=== PATIENT | female | born 1960 | race Caucasian/White ===

== ENCOUNTER 2024-04-23 12:04 | Inpatient (IN) | payer MEDICAID, MEDICARE ==
[~2024-04-23] VITALS: Ht 162.6 cm; Wt 124.3 kg
[2024-04-23 12:05] VITALS: BP_SYST 120; PULSE 110; RESP 19; TEMP 97.5; O2SAT 99
[2024-04-23 15:26] LABS: ANION GAP 10 (5-15); CALCIUM 9.3 mg/dL (8.4-11.0); CARBON DIOXIDE 25 mmol/L (23-29); CHLORIDE 111 mmol/L (98-107); CREATININE 1.62 mg/dL (0.55-1.30); GFR AFRICAN AMERICAN 41 mL/min (>90); GLUCOSE 116 mg/dL (74-106); SODIUM SERUM 146 mmol/L (136-145); UREA NITROGEN, BLOOD 32 mg/dL (8-21)
[2024-04-23] MEDS: VANCOMYCIN HCL 1,000 MG in NS 250 ML IV ONE (15:30)
[2024-04-23 15:44] LABS: ALCOHOL, BLOOD < 3 mg/dL (<10); GFR NON AFRICAN-AMERICAN 34 mL/min (>90)
[2024-04-23 15:47] LABS: POTASSIUM 2.7 mmol/L (3.5-5.1)
[2024-04-23 15:55] LABS: HEMOGLOBIN 12.2 g/dL (12.0-16.0); MEAN CORPUSCULAR HEMOGLOBIN 30 pg (27-31); MEAN CORPUSCULAR HGB CONC 34 % (32-36); MEAN CORPUSCULAR VOLUME 88 fL (79.0-98.0); RED BLOOD CELL COUNT(AUTO) 4.08 MIL/uL (4.2-6.2); RED CELL DISTRIBUTION WIDTH 16.5 % (9.0-15.0); WHITE BLOOD COUNT (AUTO) 13.7 K/uL (4.8-10.8)
[2024-04-23] MEDS ORDERED: KCL 40 mEq in 100 mL (PREMIX) 100 ML IV ONE (16:00)
[2024-04-23] MEDS: NACL 0.9% 2,000 ML IV ONE (16:30)
[2024-04-23 16:42] LABS: ANISOCYTOSIS 1+; BAND % (MANUAL) 12 % (0-6); BASOPHILS % (MANUAL) 0 % (0-2); EOSINOPHILS % (MANUAL) 0 % (0-7); LYMPHOCYTES % (MANUAL) 16 % (20-46); MONOCYTES % (MANUAL) 4 % (0-11); OVALOCYTES MODERATE; PLATELET ESTIMATE DECREASED (ADEQUATE); TEAR DROP CELLS MODERATE
[2024-04-23 16:44] LABS: PLATELET COUNT (AUTO) 68 K/uL (130-430)
[2024-04-23] MEDS: HEPARIN SODIUM,PORCINE 5,000 UNITS/ML VIAL IVP ONE (17:00)
[2024-04-23] MEDS: NACL 0.9% 1,000 ML IV ONE ×2 (17:49→20:21)
[2024-04-23 18:04] LABS: BILIRUBIN,URINE 2+ (NEGATIVE); BLOOD, URINE 3+ (NEGATIVE); CLARITY/URINE CLOUDY (CLEAR); GLUCOSE,URINE NEGATIVE (NEGATIVE); KETONES,URINE TRACE (NEGATIVE); LEUKOCYTE ESTERASE ,URINE 2+ (NEGATIVE); NITRITE, URINE NEGATIVE (NEGATIVE); PROTEIN URINE 2+ (NEGATIVE)
[2024-04-23] MEDS: KCL 20 mEq in 100 mL (PREMIX) 100 ML IV SCH (18:08)
[2024-04-23 18:11] LABS: COLOR,URINE ORANGE (YELLOW)
[2024-04-23 18:42] LABS: WBC,URINE >100 /HPF (0-3)
[2024-04-23 18:43] LABS: BACTERIA,URINE MANY /HPF (None Seen); MUCUS,URINE None Seen /LPF (None Seen)
[2024-04-23] MEDS ORDERED: LEVO112T5 PO (18:54)
[2024-04-23] MEDS ORDERED: IPRA3AMP9 HHN (18:54)
[2024-04-23] MEDS ORDERED: METO25TA6 PO (18:54)
[2024-04-23] MEDS ORDERED: MEGE400O6 PO (18:54)
[2024-04-23] MEDS ORDERED: POTA-195 PO (18:54)
[2024-04-23] MEDS ORDERED: MIRT7.5T11 PO (18:54)
[2024-04-23] MEDS ORDERED: ATOR40TA68 PO (18:54)
[2024-04-23] MEDS ORDERED: TOLT4CAP28 PO (18:54)
[2024-04-23] MEDS ORDERED: DOCU-156 PO (18:54)
[2024-04-23 19:30] LABS: BARBITURATE, URINE NEGATIVE (NEG <=200); BENZODIAZEPINE, URINE NEGATIVE (NEG <=150); CANNABINOID, URINE NEGATIVE (NEG <=50); COCAINE, URINE NEGATIVE (NEG <=150); METHAMPHETAMINES SCREEN,URINE NEGATIVE (NEG <=500); OPIATE, URINE NEGATIVE (NEG <=100); PHENCYCLIDINE SCREEN,URINE NEGATIVE (NEG <=25); UR TRICYCLIC ANTIDEPRESSANTS NEGATIVE (NEG <=300); URINE AMPHETAMINE NEGATIVE (NEG <=500); URINE METHADONE NEGATIVE (NEG <=200); URINE OXYCODONE SCREEN NEGATIVE (NEG <=100)
[2024-04-23 19:51] LABS: INR 2.2 (0.8-1.2)
[2024-04-23] MEDS ORDERED: PIPERACILLIN/TAZOBACTAM 3.375 GM/VIAL (ZOSYN) IV ONE (20:21)
[2024-04-23] MEDS: PIPERACILLIN/TAZO 3.375 GM in NS 50 ML IV ONE (20:21)
[2024-04-23 22:23] VITALS: BP_SYST 114; PULSE 104; RESP 20; TEMP 97.3; O2SAT 99
[2024-04-24 00:38] VITALS: BP_SYST 128; PULSE 90; RESP 19; TEMP 97.5; O2SAT 95
[2024-04-24 08:00] VITALS: BP_SYST 100; PULSE 99; RESP 14; TEMP 97.2; O2SAT 100
[2024-04-24 10:39] LABS: CALCIUM 9.1 mg/dL (8.4-11.0); CREATININE 1.64 mg/dL (0.55-1.30)
[2024-04-24 11:42] LABS: BASOPHILS % (AUTO) 0.1 % (0.0-2.0); EOSINOPHILS % (AUTO) 0.1 % (0.0-4.0); HEMATOCRIT 36.3 % (36-48); HEMOGLOBIN 11.9 g/dL (12.0-16.0); LYMPHOCYTES # (AUTO) 3.2 K/uL (1.0-5.5); LYMPHOCYTES % (AUTO) 20.4 % (20.5-51.5); MEAN CORPUSCULAR HEMOGLOBIN 29 pg (27-31); MEAN CORPUSCULAR HGB CONC 33 % (32-36); MEAN CORPUSCULAR VOLUME 89 fL (79.0-98.0); MONOCYTES # (AUTO) 1.1 K/uL (0.0-1.0); MONOCYTES % (AUTO) 6.7 % (1.7-9.3); NEUTROPHILS # (AUTO) 11.6 K/uL (1.8-7.7); NEUTROPHILS % (AUTO) 72.7 % (40.0-70.0); RED BLOOD CELL COUNT(AUTO) 4.08 MIL/uL (4.2-6.2); RED CELL DISTRIBUTION WIDTH 16.3 % (9.0-15.0); WHITE BLOOD COUNT (AUTO) 15.9 K/uL (4.8-10.8)
[2024-04-24 12:31] LABS: PLATELET COUNT (AUTO) 59 K/uL (130-430)
[2024-04-24 12:48] VITALS: BP_SYST 118; PULSE 102; RESP 18; TEMP 98.3; O2SAT 98
[2024-04-24 17:15] VITALS: BP_SYST 122; PULSE 96; RESP 18; TEMP 98.2; O2SAT 100
[2024-04-24 20:00] VITALS: BP_SYST 120; PULSE 111; RESP 18; TEMP 96.3; O2SAT 99
[2024-04-24] MEDS: CLOTRIMAZOLE 1% TOPICAL CREAM 15 GM TP SCH (20:53)
[2024-04-24] MEDS ORDERED: ANTIFUNGAL CLEAR OINTMENT TP SCH (21:00)
[2024-04-24] MEDS ORDERED: IPRATROPIUM/ALBUTEROL SULFATE 3 ML AMPUL.NEB (DUONEB) INH PRN (22:30)
[2024-04-24] MEDS: NACL 0.9% 1,000 ML IV SCH (23:12)
[2024-04-24 23:45] VITALS: BP_SYST 122; PULSE 96
[2024-04-25] VITALS (21 sets, daily range): BP systolic 62–144; PULSE 98–124; RESP 16–33; TEMP 95.6–98.4; O2SAT 65–100
[2024-04-25] MEDS: PIPERACILLIN/TAZO 3.375 GM in D5W 50 ML IV SCH (01:38)
[2024-04-25] MEDS: PIPERACILLIN/TAZOBACTAM 3.375 GM/VIAL (ZOSYN) IV ONE (01:43)
[2024-04-25] MEDS ORDERED: CEFEPIME 2 GM in D5W 100 ML IV SCH (09:00)
[2024-04-25] MEDS: CEFEPIME 1 GM in D5W 100 ML IV SCH (09:53)
[2024-04-25] MEDS: LEVOTHYROXINE SODIUM 0.112 MG TABLET PO SCH (10:01)
[2024-04-25] MEDS: DOCUSATE SODIUM 100 MG CAPSULE PO SCH (10:01)
[2024-04-25] MEDS: ATORVASTATIN 20 MG TABLET PO SCH (10:02)
[2024-04-25] MEDS: METOPROLOL TARTRATE 25 MG TABLET PO SCH (10:06)
[2024-04-25] MEDS: NACL 0.9% 1,000 ML IV ONE ×2 (12:45→15:05)
[2024-04-25] MEDS ORDERED: *HEPARIN PER PHARMACY XX PRN (13:00)
[2024-04-25] MEDS ORDERED: NACL 0.9% 1,000 ML IV SCH (13:00)
[2024-04-25] MEDS ORDERED: HEPARIN 25,000 UNITS/D5W 250ML 250 ML IV PRN (13:00)
[2024-04-25] MEDS ORDERED: ETOMIDATE 20 MG/ 10 ML VIAL (AMIDATE) ONE (14:05)
[2024-04-25] MEDS ORDERED: ROCURONIUM BROMIDE 10 MG/ML (ZEMURON) ONE (14:05)
[2024-04-25] MEDS: NOREPINEPHRINE 4 MG/4 ML VIAL IV ONE (14:21)
[2024-04-25] MEDS: NOREPINEPHRINE BITARTRATE 8 MG in D5W 242 ML IV PRN (14:47)
[2024-04-25] MEDS: HEPARIN 25,000 UNITS/D5W 250ML 250 ML IV ONE (14:55)
[2024-04-25 15:28] LABS: ABG O2 SAT% ESTIMATE 99.7 % (94.0-98.0); BLOOD GAS BASE EXCESS -13.1 mmol/L (-2.0-3.0); BLOOD GAS HCO3 12.2 mmol/L (21.0-28.0); BLOOD GAS PH 7.273 (7.350-7.450)
[2024-04-25 15:29] LABS: BLOOD GAS PO2 371.2 mmHg (83.0-108.0)
[2024-04-25 15:31] LABS: HEMATOCRIT 35.3 % (36-48); HEMOGLOBIN 11.1 g/dL (12.0-16.0); MEAN CORPUSCULAR HEMOGLOBIN 29 pg (27-31); MEAN CORPUSCULAR HGB CONC 32 % (32-36); MEAN CORPUSCULAR VOLUME 93 fL (79.0-98.0); RED BLOOD CELL COUNT(AUTO) 3.81 MIL/uL (4.2-6.2); RED CELL DISTRIBUTION WIDTH 17.4 % (9.0-15.0); WHITE BLOOD COUNT (AUTO) 19.2 K/uL (4.8-10.8)
[2024-04-25 15:47] LABS: BILIRUBIN,DIRECT 0.9 mg/dL (0.0-0.3); CALCIUM 8.1 mg/dL (8.4-11.0); CREATININE 2.38 mg/dL (0.55-1.30); TOTAL BILIRUBIN 1.3 mg/dL (0.0-1.0); TOTAL PROTEIN, SERUM 4.9 g/dL (6.4-8.3)
[2024-04-25 15:50] LABS: POTASSIUM 2.9 mmol/L (3.5-5.1)
[2024-04-25 15:51] LABS: PLATELET COUNT (AUTO) 45 K/uL (130-430)
[2024-04-25 15:53] LABS: BAND % (MANUAL) 3 % (0-6); BASOPHILS % (MANUAL) 0 % (0-2); EOSINOPHILS % (MANUAL) 0 % (0-7); LYMPHOCYTES % (MANUAL) 10 % (20-46); MONOCYTES % (MANUAL) 4 % (0-11)
[2024-04-25 15:54] LABS: ANISOCYTOSIS 1+; OVALOCYTES FEW; PLATELET ESTIMATE DECREASED (ADEQUATE)
[2024-04-25] MEDS ORDERED: LR 1,000 ML IV SCH (16:00)
[2024-04-25] MEDS ORDERED: HEPARIN 25,000 UNITS in 250 ML PREMIX IV PRN (16:30)
[2024-04-25] MEDS ORDERED: HEPARIN SODIUM,PORCINE 2000 UNITS/0.4 ML BOLUS IVP PRN (16:30)
[2024-04-25] MEDS ORDERED: HEPARIN SODIUM,PORCINE 3000 UNITS/0.6 ML BOLUS IVP PRN (16:30)
[2024-04-25] MEDS: KCL 20 mEq in 100 mL (PREMIX) 100 ML IV ONE (16:36)
[2024-04-25] MEDS: SODIUM BICARBONATE 8.4% JECT 50 MEQ/50 ML SYRINGE IVP ONE (16:37)
[2024-04-25] MEDS: PROPOFOL DRIP 100 ML IV PRN (16:58)
[2024-04-25] MEDS: HYDROCORTISONE SOD SUCC 100 MG/2 ML VIAL IVP ONE (17:31)
[2024-04-25] MEDS: NACL 0.9% 1,000 ML IV SCH (17:32)
[2024-04-25] MEDS: MEROPENEM 500 MG in NS 50 ML IV SCH (18:12)
[2024-04-25] MEDS: KCL 40 mEq in 100 mL (PREMIX) 100 ML IV ONE (18:25)
[2024-04-25] MEDS: VANCOMYCIN HCL 1,000 MG in NS 250 ML IV SCH (19:31)
[2024-04-25] MEDS: HYDROCORTISONE SOD SUCC 100 MG/2 ML VIAL IVP SCH (21:30)
[2024-04-25] MEDS ORDERED: COMMUNICATION ORDER XX ONE (22:30)
[2024-04-25] MEDS: VASOPRESSIN 20 UNITS/ML VIAL IV ONE (22:49)
[2024-04-25] MEDS: VASOPRESSIN 40 UNITS in NS 38 ML IV PRN (23:06)
[2024-04-25] MEDS: PHENYLEPHRINE HCL 10 MG/ML VIAL (NEOSYNEPHRINE) ONE (23:22)
[2024-04-26] VITALS (10 sets, daily range): BP systolic 71–161; PULSE 97–120; RESP 16–38; TEMP 97.8–99.5; O2SAT 38–80
[2024-04-26] MEDS ORDERED: COMMUNICATION ORDER XX ONE
[2024-04-26] MEDS: NS 500 ML IV ONE (00:45)
[2024-04-26] MEDS ORDERED: NOREPINEPHRINE BITARTRATE 16 MG in D5W 242 ML IV PRN (01:45)
[2024-04-26 01:46] LABS: VENOUS BASE EXCESS -30.3 mmol/l (-2.0-3.0); VENOUS PH BG 6.773 (7.320-7.430); VENOUS PO2 63.7 mmHg (23.0-48.0)
[2024-04-26 01:48] LABS: BASOPHILS % (AUTO) 0.2 % (0.0-2.0); HEMOGLOBIN 9.1 g/dL (12.0-16.0)
[2024-04-26 01:55] LABS: EOSINOPHILS # (AUTO) 0.3 K/uL (0.0-0.4); EOSINOPHILS % (AUTO) 1.7 % (0.0-4.0); HEMATOCRIT 31.9 % (36-48); LYMPHOCYTES # (AUTO) 2.5 K/uL (1.0-5.5); LYMPHOCYTES % (AUTO) 14.4 % (20.5-51.5); MEAN CORPUSCULAR HEMOGLOBIN 30 pg (27-31); MEAN CORPUSCULAR HGB CONC 29 % (32-36); MEAN CORPUSCULAR VOLUME 104 fL (79.0-98.0); MONOCYTES # (AUTO) 1.2 K/uL (0.0-1.0); NEUTROPHILS # (AUTO) 13.1 K/uL (1.8-7.7); NEUTROPHILS % (AUTO) 76.7 % (40.0-70.0); RED BLOOD CELL COUNT(AUTO) 3.07 MIL/uL (4.2-6.2); RED CELL DISTRIBUTION WIDTH 18.8 % (9.0-15.0)
[2024-04-26 02:12] LABS: PLATELET COUNT (AUTO) 28 K/uL (130-430)
[2024-04-26 02:17] LABS: ALANINE AMINOTRANSFERASE 1500 U/L (12-78); ALBUMIN 1.3 g/dL (3.4-4.8); ANION GAP 28 (5-15); CALCIUM 7.5 mg/dL (8.4-11.0); CHLORIDE 114 mmol/L (98-107); CREATININE 2.87 mg/dL (0.55-1.30); GFR AFRICAN AMERICAN 21 mL/min (>90); GLUCOSE 113 mg/dL (74-106); SODIUM SERUM 147 mmol/L (136-145); TOTAL PROTEIN, SERUM 3.8 g/dL (6.4-8.3); UREA NITROGEN, BLOOD 43 mg/dL (8-21)
[2024-04-26 02:19] LABS: GFR NON AFRICAN-AMERICAN 18 mL/min (>90)
[2024-04-26 02:22] LABS: CARBON DIOXIDE 5 mmol/L (23-29); POTASSIUM 6.1 mmol/L (3.5-5.1)
[2024-04-26] MEDS: NOREPINEPHRINE 4 MG/4 ML VIAL IV ONE (02:27)
[2024-04-26] MEDS: VASOPRESSIN 20 UNITS/ML VIAL IV ONE (02:29)
[2024-04-26] MEDS: SODIUM BICARBONATE 8.4% VIAL 50 MEQ/50 ML VIAL ONE (03:06)
[2024-04-26] MEDS: SODIUM BICARBONATE 8.4% VIAL 150 MEQ in D5W 1,000 ML IV SCH (03:07)
[2024-04-26] MEDS: EPINEPHrine HCL 1 MG/ML VIAL ONE (03:23)
[2024-04-26] MEDS: PHENYLEPHRINE HCL 100 MG in NS 240 ML IV PRN (03:27)
[2024-04-26] MEDS: NOREPINEPHRINE BITARTRATE 32 MG in D5W 242 ML IV PRN (03:37)
[2024-04-26] MEDS: EPINEPHrine HCL 10 MG in NS 240 ML IV PRN (03:49)
[2024-04-26] MEDS: PHENYLEPHRINE HCL 10 MG/ML VIAL (NEOSYNEPHRINE) ONE ×3 (06:15→06:16)
[2024-04-26] MEDS: LEVOTHYROXINE SODIUM 0.112 MG TABLET PO SCH (06:16)
[2024-04-26] MEDS ORDERED: PANTOPRAZOLE SODIUM 40 MG/VIAL (PROTONIX) IVP SCH (09:00)
[2024-04-26] MEDS ORDERED: SODIUM BICARBONATE 8.4% JECT 50 MEQ/50 ML SYRINGE ONE (10:25)
[2024-04-26] MEDS ORDERED: CALCIUM CHLORIDE 1 GM/10 ML DISP.SYRIN (14 mEq Ca++/SYR) ONE (10:25)
[2024-04-26] MEDS ORDERED: EPINEPHrine JECT 0.1 MG/ML SYR ONE (10:25)
== END 2024-04-26 07:14 | DRG 720 ==
LOC: SED 12:04 → STU 17:19 → SIC 04-25 12:53
PROVIDERS: ADMIT Family Medicine; ATTEND Family Medicine
PROC: 02HV33Z Insertion of Infusion Device into Superior Vena Cava, Percutaneous Approach (ICD-10-PCS; 2024-04-23)
PROC: 0BH17EZ Insertion of Endotracheal Airway into Trachea, Via Natural or Artificial Opening (ICD-10-PCS; principal; 2024-04-25)
PROC: 5A1935Z Respiratory Ventilation, Less than 24 Consecutive Hours (ICD-10-PCS; 2024-04-25)
PROC: 5A12012 Performance of Cardiac Output, Single, Manual (ICD-10-PCS; 2024-04-26)
DX: A41.9 Sepsis, unspecified organism (principal); J96.01 Acute respiratory failure with hypoxia; J69.0 Pneumonitis due to inhalation of food and vomit; N17.0 Acute kidney failure with tubular necrosis; R65.21 Severe sepsis with septic shock; G92.8 Other toxic encephalopathy; I82.403 Acute embolism and thrombosis of unspecified deep veins of lower extremity, bilateral; D69.6 Thrombocytopenia, unspecified; E03.9 Hypothyroidism, unspecified; E66.01 Morbid (severe) obesity due to excess calories; E78.5 Hyperlipidemia, unspecified; I10 Essential (primary) hypertension; J45.909 Unspecified asthma, uncomplicated; Z79.899 Other long term (current) drug therapy; N39.0 Urinary tract infection, site not specified; Z88.8 Allergy status to other drugs, medicaments and biological substances; Z68.42 Body mass index [BMI] 45.0-49.9, adult
CPT/HCPCS: 36415; 36600; 70450-TC; 71045; 76770; 80048; 80053; 80307; 81000; 81001; 81015; 82248; 82800-TC; 82803; 82948; 83605; 84484; 85007; 85025; 85027; 85379; 85384; 85610; 85730; 87040; 87070; 87081; 87086; 87186; 87205; 92610-GN; 92950; 93005; 93970; 94002; 94760; 96365; 99291; C1751; G0378; G0482; J0171; J0692; J0696; J1644; J1720; J2185; J2543; J2704; J3370; J3480; J3490; J7030; J7050; J7060